=== PATIENT | female | born 1990 | race Caucasian/White ===

== ENCOUNTER 2017-10-09 15:51 | Outpatient (CLI) | payer OTHER | END 2017-10-09 15:52 | disposition home or self-care (01) | LOC: EDBD 15:51 → CTENTCT 15:51 | PROVIDERS: ATTEND Otolaryngology Plastic Surgery within the Head & Neck | DX: J32.8 Other chronic sinusitis (principal) | CPT/HCPCS: 70486 ==

== ENCOUNTER 2018-10-04 22:57 | Emergency (ER) | payer SELFPAY ==
[2018-10-04] MEDS ORDERED: HYDROcodone/Acetaminophen 5/325 mg Tablet ONE (23:12)
== END 2018-10-04 23:22 | disposition home or self-care (01) ==
LOC: SCSER 22:57
DX: L25.9 Unspecified contact dermatitis, unspecified cause (principal)
CPT/HCPCS: 99282